=== PATIENT | male | born 1935 | race Caucasian/White ===

== ENCOUNTER 2016-12-12 22:01 | Emergency (ER) | payer OTHER ==
--- NOTE | 2016-12-12 23:03 | ED Physician Documentation ---
PD HPI Fall - Stated complaint Stated Complaint: GLF - Chief complaint Chief Complaint: Laceration - History obtained from History obtained from: Patient - History of Present Illness Mechanism of injury: Slipped Fall distance: Standing position Where injury occurred: Home Timing - onset: How many days ago (2) Injury(ies) location: Head (left ear), Left Uppper Extremity Pain level now: 8 Quality of pain: Pain Associated symptoms: No: LOC, AMS, Neck pain, Weakness Symptoms improve with: Rest Worsens with: Movement, Palpation Contributing factors: Anticoagulated Recently seen: Not recently seen - Additional information Additional information: fell two days ago at home, slipped while trying to adjust a rug in his bathroom. denies LOC, sustained injuries to left ear, left elbow, and left hand. His chief complaint is increasing swelling and pain of left hand and left elbow. Review of Systems Ears: reports: Ear pain Musculoskeletal: reports: Extremity pain, Joint pain Neurologic: reports: Head injury. denies: Generalized weakness, Focal weakness , Numbness, Confused, Altered mental status, Headache, LOC PD PAST MEDICAL HISTORY - Past Medical History Cardiovascular: Hypertension, High cholesterol Respiratory: None Neuro: CVA Endocrine/Autoimmune: Type 2 diabetes Psych: None Musculoskeletal: Osteoarthritis - Past Surgical History Cardiovascular: CABG - Present Medications Home Medications: Ambulatory Orders Medication Instructions Recorded Confirmed Aspirin [Lo-Dose Aspirin EC] 81 mg ORAL DAILY 11/05/14 06/25/15 Atorvastatin [Lipitor] 5 mg ORAL DAILY 11/05/14 06/25/15 Clopidogrel Bisulfate [Plavix] 75 mg ORAL DAILY 11/05/14 06/25/15 Ezetimibe [Zetia] 10 mg ORAL DAILY 11/05/14 06/25/15 Ipratropium/Albuterol [Duoneb] 1 neb INH Q4HR PRN 11/05/14 06/25/15 Metoprolol Tartrate 50 mg ORAL DAILY 11/05/14 06/25/15 Saxagliptin HCl [Onglyza] 5 mg ORAL DAILY 11/05/14 06/25/15 Sertraline [Zoloft] 100 mg ORAL DAILY 11/05/14 06/25/15 Valsartan [Diovan] 160 mg ORAL DAILY 11/05/14 06/25/15 Cephalexin [Keflex] 500 mg PO Q6HR #27 capsule 12/13/16 HYDROcod/ACETAM 5/325 [[place] 5/325] 1 - 2 ea PO Q6H PRN #15 tablet 12/13/16 - Allergies Allergies/Adverse Reactions: Allergies Allergy/AdvReac Type Severity Reaction Status Date / Time azithromycin [From Zithromax] Allergy Unknown Verified 12/12/16 22:09 - Social History Does the pt smoke?: No Smoking Status: Never smoker Does the pt drink ETOH?: No - Immunizations Immunizations are current?: Yes PD ED PE NORMAL - Vitals Vital signs reviewed: Yes - General General: Alert and oriented X 3, No acute distress, Well developed/nourished - HEENT HEENT: PERRL, EOMI - Neck Neck: No bony TTP - Extremities Extremities: No deformity - Neuro Neuro: Alert and oriented X 3, operations analyst 2-12 intact, No motor deficit, No sensory deficit PD ED PE EXPANDED - HEENT HEENT Visual: 1 - laceration (edges are loosely approximated; there is mild surrounding erythema.) 2 - swelling (echymosis, swelling) - Extremities Extremities: Tenderness, Swelling, Left elbow, Left hand (1st and second metacarpals) Results - Vitals Vitals: Vital Signs - 24 hr 12/12/16 12/13/16 22:09 01:44 Temperature 36.4 C L 36.9 C Heart Rate 74 76 Respiratory 18 15 Rate Blood Pressure 163/92 H 168/84 H O2 Saturation 96 95 Oxygen O2 Source Room air - Rads (name of study) left elbow xrays Radiology: Prelim report reviewed, See rad report left hand xrays Radiology: Prelim report reviewed, See rad report PD MEDICAL DECISION MAKING - ED course Complexity details: reviewed results, re-evaluated patient, considered differential, d/w patient Departure - Departure Disposition: 01 Home, Self Care Clinical Impression: Elbow fracture, left, Laceration of ear, Sprain of left hand Condition: Good Instructions: ED Fx Elbow, ED Laceration Old Not Sutr, ED Sling Follow-Up: Laz Stewart MD [Primary Care Provider] - (2-4 days for recheck of ear laceration) Rony Nails MD [Provider Admit Priv/Credential] - (2-5 days for evaluation of left elbow injury) Prescriptions: Cephalexin [Keflex] 500 mg PO Q6HR #27 capsule HYDROcod/ACETAM 5/325 [[place] 5/325] 1 - 2 ea PO Q6H PRN #15 tablet PRN Reason: Pain Discharge Date/Time: 12/13/16 01:45
--- NOTE | 2016-12-13 00:25 | XRAY Preliminary Report ---
Exam: XR Hand 3 View LT IMPRESSION: No fracture or dislocations. Osteoarthritis. [facility] SITE ID: [id number]
--- NOTE | 2016-12-13 00:28 | XRAY Report ---
EXAM: LEFT HAND RADIOGRAPHY EXAM DATE: 12/12/2016 11:33 PM. CLINICAL HISTORY: Fall. COMPARISON: None. TECHNIQUE: 3 views. FINDINGS: Bones: Normal. No fractures or bone lesions. Joints: Wrist chondrocalcinosis. There are advanced degenerative changes involving the first carpomet acarpal and DIP joints. Soft Tissues: Normal. No soft tissue swelling. IMPRESSION: No fracture or dislocations. Osteoarthritis. [facility] Referring Provider Line: [phone] SITE ID: [id number]
--- NOTE | 2016-12-13 00:30 | XRAY Preliminary Report ---
Exam: XR Elbow 3 View LT IMPRESSION: Joint effusion with subtle radial neck lucency suspicious for nondisplaced fracture. [facility] SITE ID: [id number]
--- NOTE | 2016-12-13 00:32 | XRAY Report ---
EXAM: LEFT ELBOW RADIOGRAPHY EXAM DATE: 12/12/2016 11:33 PM. CLINICAL HISTORY: Fall 2 days ago, hand and elbow pain COMPARISON: None. TECHNIQUE: 3 views. FINDINGS: Bones: Subtle radial neck lucency suspicious for a nondisplaced fracture. The distal humerus and prox imal ulna are intact. Joints: Small joint effusion. Soft Tissues: Normal. No soft tissue swelling. IMPRESSION: Joint effusion with subtle radial neck lucency suspicious for nondisplaced fracture. [facility] Referring Provider Line: [phone] SITE ID: [id number]
[2016-12-13] MEDS ORDERED: HYDROcod/ACETAM 5/325 MG TABLET PO STA (01:10)
[2016-12-13] MEDS ORDERED: CEPHALEXIN 250 MG CAPSULE PO STA (01:11)
[2016-12-13] MEDS ORDERED: CEPHALEXIN 250 MG CAPSULE PO ONE (01:15)
[2016-12-13] MEDS ORDERED: HYDROcod/ACETAM 5/325 MG TABLET ONE (01:15)
[2016-12-13 01:44] VITALS: BP 168/84
== END 2016-12-13 01:45 | disposition home or self-care (01) ==
LOC: ED 22:01
DX: S52.132A Displaced fracture of neck of left radius, initial encounter for closed fracture (principal); S63.92XA Sprain of unspecified part of left wrist and hand, initial encounter; S01.312A Laceration without foreign body of left ear, initial encounter; W01.0XXA Fall on same level from slipping, tripping and stumbling without subsequent striking against object, initial encounter; Y92.002 Bathroom of unspecified non-institutional (private) residence as the place of occurrence of the external cause; E11.9 Type 2 diabetes mellitus without complications; I10 Essential (primary) hypertension; E78.00 Pure hypercholesterolemia, unspecified; Z79.82 Long term (current) use of aspirin; Z86.73 Personal history of transient ischemic attack (TIA), and cerebral infarction without residual deficits
CPT/HCPCS: 29105; 73080; 73130; 99283; 99284; A9270

== ENCOUNTER 2018-04-02 10:31 | Outpatient (CLI) | payer OTHER ==
[2018-04-02 11:01] LABS: BASOPHILS # (AUTO) 0.1 10^3/uL (0.0-0.1); BASOPHILS % (AUTO) 0.6 %; EOSINOPHILS # (AUTO) 0.6 10^3/uL (0.0-0.7); HGB - HEMOGLOBIN 13.1 g/dL (14.0-18.0); LYMPHOCYTES # (AUTO) 1.5 10^3/uL (1.5-3.5); LYMPHOCYTES % (AUTO) 12.2 %; MEAN CORPUSCULAR HEMOGLOBIN 26.8 pg (27.0-31.0); MEAN CORPUSCULAR HGB CONC 33.1 g/dL (32.0-36.0); MONOCYTES # (AUTO) 1.1 10^3/uL (0.0-1.0); MONOCYTES % (AUTO) 9.1 %; NEUTROPHILS # (AUTO) 8.8 10^3/uL (1.5-6.6); NEUTROPHILS % (AUTO) 73.1 %; PLT - PLATELET COUNT 279 10^3/uL (130-450); RED BLOOD COUNT 4.88 10^6/uL (4.70-6.10); RED CELL DISTRIBUTION WIDTH 14.6 % (12.0-15.0)
[2018-04-02 11:14] LABS: HB2 TOTAL 14.7 g/dL; HEMOGLOBIN A1C 0.98 g/dL; HEMOGLOBIN A1C % 8.3 % (4.6-6.2)
[2018-04-02 11:35] LABS: ALBUMIN 4.3 g/dL (3.2-5.5); ALBUMIN/GLOBULIN RATIO 1.2 (1.0-2.2); ALKALINE PHOSPHATASE 87 IU/L (42-121); ALT ALANINE AMINOTRANSFERASE 16 IU/L (10-60); AST ASPARTATE AMINOTRANSFERASE 20 IU/L (10-42); BILIRUBIN,TOTAL 0.6 mg/dL (0.2-1.0); BUN - BLOOD UREA NITROGEN 39 mg/dL (6-20); CALCIUM 9.4 mg/dL (8.5-10.3); CARBON DIOXIDE - CO2 25 mmol/L (21-32); CHLORIDE 101 mmol/L (101-111); CHOL/HDL RATIO 2.5 (<5.0); CHOLESTEROL 104 mg/dL; GFR - MDRD 32 (>89); GLUCOSE 134 mg/dL (70-100); HDL CHOLESTEROL 42 mg/dL; LDL CHOLESTEROL,CALCULATED 40 mg/dL; SODIUM 137 mmol/L (135-145); TOTAL PROTEIN 7.9 g/dL (6.7-8.2); VLDL CHOLESTEROL 22 mg/dL
== END 2018-04-02 10:32 | disposition home or self-care (01) ==
LOC: LAB 10:31
PROVIDERS: ATTEND Family Medicine
DX: I10 Essential (primary) hypertension (principal); E78.5 Hyperlipidemia, unspecified; E11.51 Type 2 diabetes mellitus with diabetic peripheral angiopathy without gangrene; Z79.4 Long term (current) use of insulin; F41.9 Anxiety disorder, unspecified
CPT/HCPCS: 36415; 80053; 80061; 83036; 83721; 84443; 85025

== ENCOUNTER 2018-04-30 10:56 | Outpatient (CLI) | payer OTHER ==
[2018-04-30 11:30] LABS: BASOPHILS # (AUTO) 0.1 10^3/uL (0.0-0.1); BASOPHILS % (AUTO) 0.6 %; EOSINOPHILS # (AUTO) 0.6 10^3/uL (0.0-0.7); EOSINOPHILS % (AUTO) 5.5 %; HGB - HEMOGLOBIN 13.1 g/dL (14.0-18.0); LYMPHOCYTES # (AUTO) 1.5 10^3/uL (1.5-3.5); LYMPHOCYTES % (AUTO) 14.7 %; MEAN CORPUSCULAR HGB CONC 33.6 g/dL (32.0-36.0); MEAN CORPUSCULAR VOLUME 80.3 fL (80.0-94.0); MEAN PLATELET VOLUME 7.4 fL (7.4-11.4); MONOCYTES # (AUTO) 0.8 10^3/uL (0.0-1.0); MONOCYTES % (AUTO) 8.2 %; NEUTROPHILS # (AUTO) 7.2 10^3/uL (1.5-6.6); PLT - PLATELET COUNT 260 10^3/uL (130-450); RED BLOOD COUNT 4.87 10^6/uL (4.70-6.10); RED CELL DISTRIBUTION WIDTH 14.6 % (12.0-15.0); WHITE BLOOD COUNT 10.2 x10^3/uL (4.8-10.8)
== END 2018-04-30 10:57 | disposition home or self-care (01) ==
LOC: LAB 10:56
PROVIDERS: ATTEND Family Medicine
DX: D72.829 Elevated white blood cell count, unspecified (principal)
CPT/HCPCS: 36415; 85025

== ENCOUNTER 2018-07-05 14:58 | Emergency (ER) | payer OTHER ==
[2018-07-05] MEDS ORDERED: HYDROcod/ACETAM 5/325 MG TABLET PO STA (15:18)
--- NOTE | 2018-07-05 15:19 | ED Physician Documentation ---
PD HPI UPPER EXT INJURY - Stated complaint Stated Complaint: FALL/WRIST PX - Chief complaint Chief Complaint: Ext Problem - History obtained from History obtained from: Patient, Family - History of Present Illness Location: Right (Slip and fall early yesterday morning injuring the right wrist. No head or neck injury. Pain is moderate. He cannot move it.) Review of Systems Constitutional: reports: Reviewed and negative Throat: reports: Reviewed and negative Cardiac: reports: Reviewed and negative PD PAST MEDICAL HISTORY - Past Medical History Past Medical History: No Cardiovascular: Hypertension, High cholesterol Respiratory: None Neuro: None Endocrine/Autoimmune: Type 2 diabetes GI: GERD : Other HEENT: Chronic vision loss, Macular degeneration Psych: None Musculoskeletal: Osteoarthritis Derm: None - Past Surgical History Past Surgical History: Yes Cardiovascular: CABG - Present Medications Home Medications: Ambulatory Orders Medication Instructions Recorded Confirmed Aspirin [Lo-Dose Aspirin EC] 81 mg ORAL DAILY 11/05/14 05/25/17 Atorvastatin [Lipitor] 5 mg ORAL DAILY 11/05/14 05/25/17 Clopidogrel Bisulfate [Plavix] 75 mg ORAL DAILY 11/05/14 05/25/17 Ezetimibe [Zetia] 10 mg ORAL DAILY 11/05/14 05/25/17 Metoprolol Tartrate 50 mg ORAL BID 11/05/14 05/25/17 Sertraline [Zoloft] 100 mg ORAL DAILY 11/05/14 05/25/17 Valsartan [Diovan] 160 mg ORAL DAILY 11/05/14 05/25/17 HYDROcod/ACETAM 5/325 [[place] 5/325] 1 - 2 ea PO Q6H PRN #15 tablet 05/25/17 Insulin Glargine [Lantus Solostar] 18 units SQ DAILY 05/25/17 05/25/17 Omeprazole [PriLOSEC] 1 cap PO DAILY 05/25/17 05/25/17 Hydrocodone/Acetaminophen 1 - 2 each PO Q6H PRN #20 tablet 07/05/18 [Hydrocodon-Acetaminophen 5-325] - Allergies Allergies/Adverse Reactions: Allergies Allergy/AdvReac Type Severity Reaction Status Date / Time azithromycin [From Zithromax] Allergy Unknown Verified 07/05/18 15:09 - Social History Does the pt smoke?: No Smoking Status: Never smoker Does the pt drink ETOH?: No Does the pt have substance abuse?: No - Immunizations Immunizations are current?: Yes - POLST Patient has POLST: No PD ED PE NORMAL - Vitals Vital signs reviewed: Yes - General General: Alert and oriented X 3, No acute distress - Neck Neck: No bony TTP - Extremities Extremities: Other (Tender over the distal ulna not so much the distal radius. No snuffbox tenderness. He can't flex or extend the right very much but he has normal neurovascular status in the right hand.) - Neuro Neuro: Alert and oriented X 3, Normal speech Results - Vitals Vitals: Vital Signs - 24 hr 07/05/18 15:03 Temperature 36.6 C Heart Rate 56 L Respiratory 18 Rate Blood Pressure 124/61 O2 Saturation 98 Oxygen O2 Source Room air - Rads (name of study) 3v R wrist Radiology: EMP read contemporaneously (Slightly impacted distal radius fracture) Procedures - Splint (location) R wrist Splint applied by: Tech Type of splint: Fiberglass, Short arm, Volar cock up Other: Patient tolerated well, No complications, Neurovascular intact Departure - Departure Disposition: 01 Home, Self Care Clinical Impression: Fracture of right distal radius Qualifiers: Encounter type: initial encounter Fracture type: closed Fracture morphology: other extra-articular Qualified Code(s): S52.551A - Other extraarticular fracture of lower end of right radius, initial encounter for closed fracture Condition: Good Record reviewed to determine appropriate education?: Yes Instructions: ED Fx Forearm Radius Ulna No Redu Requ Follow-Up: [facility] [Provider Group] - Within 1 week Prescriptions: Hydrocodone/Acetaminophen [Hydrocodon-Acetaminophen 5-325] 1 - 2 each PO Q6H PRN #20 tablet PRN Reason: pain Comments: Keep the splint on and dry, do not remove it. Call the orthopedics office tomorrow for an appointment within the week. Keep it elevated. Return for new or worsening symptoms.
[2018-07-05 16:06] VITALS: BP 123/66
--- NOTE | 2018-07-05 16:11 | XRAY Report ---
Reason: Fall onto right hand, continues to have pain Procedure Date: 07/05/2018 Accession Number: [id number] / [id number] Procedure: XR - Wrist 3 View RT CPT Code: FULL RESULT: EXAM: RIGHT WRIST RADIOGRAPHY EXAM DATE: 07/05/2018 03:30 PM. CLINICAL HISTORY: Fall onto right hand, continues to have pain. COMPARISON: None. TECHNIQUE: 3 views. FINDINGS: Bones: Nondisplaced horizontal fracture at the junction of the diaphysis and metaphysis of the distal right radius. Joints: Some osteoarthritis of the first carpal metacarpal joint. Some chondrocalcinosis is present. Soft Tissues: Vascular calcifications. IMPRESSION: Nondisplaced horizontal fracture of the distal right radius. [facility]
== END 2018-07-05 16:07 | disposition home or self-care (01) ==
LOC: ED 14:58
DX: S52.551A Other extraarticular fracture of lower end of right radius, initial encounter for closed fracture (principal); W01.0XXA Fall on same level from slipping, tripping and stumbling without subsequent striking against object, initial encounter; E11.9 Type 2 diabetes mellitus without complications; Z79.4 Long term (current) use of insulin; I10 Essential (primary) hypertension; Z79.02 Long term (current) use of antithrombotics/antiplatelets; Z79.82 Long term (current) use of aspirin
CPT/HCPCS: 29125; 73110; 99283; A9270

== ENCOUNTER 2018-10-08 10:55 | Outpatient (CLI) | payer OTHER ==
--- NOTE | 2018-10-08 11:55 | XRAY Report ---
Reason: COUGH Procedure Date: 10/08/2018 Accession Number: [id number] / [id number] Procedure: WCP - Chest 1 View X-Ray CPT Code: 97751 FULL RESULT: EXAM: CHEST RADIOGRAPHY EXAM DATE: 10/08/2018 11:21 AM. CLINICAL HISTORY: Cough. COMPARISON: None. TECHNIQUE: 1 view. FINDINGS: Lungs/Pleura: There is gradient opacity in the left lower hemithorax consistent with small layering effusion. Adjacent plate-like subsegmental opacity consistent with atelectasis. No confluent airspace opacities. No extra-ventilatory air. Mediastinum: Within exam limitations, the cardiomediastinal contour is normal. Sequela of prior median sternotomy for CABG. Other: None. IMPRESSION: Small left effusion with associated basilar atelectasis. [facility]
== END 2018-10-08 10:56 | disposition home or self-care (01) ==
LOC: DI.WCP 10:55
PROVIDERS: ATTEND Family Medicine
DX: J90 Pleural effusion, not elsewhere classified (principal); J98.11 Atelectasis
CPT/HCPCS: 36415; 71045; 80053; 85025; 87275; 87276

== ENCOUNTER 2018-10-08 11:45 | Outpatient (CLI) | payer OTHER ==
[2018-10-08 18:50] LABS: BASOPHILS % (AUTO) 0.4 %; EOSINOPHILS # (AUTO) 0.3 10^3/uL (0.0-0.7); EOSINOPHILS % (AUTO) 2.4 %; HGB - HEMOGLOBIN 11.7 g/dL (14.0-18.0); LYMPHOCYTES # (AUTO) 1.3 10^3/uL (1.5-3.5); LYMPHOCYTES % (AUTO) 9.5 %; MEAN CORPUSCULAR HEMOGLOBIN 24.6 pg (27.0-31.0); MEAN CORPUSCULAR HGB CONC 31.4 g/dL (32.0-36.0); MEAN CORPUSCULAR VOLUME 78.4 fL (80.0-94.0); MEAN PLATELET VOLUME 7.8 fL (7.4-11.4); MONOCYTES # (AUTO) 1.1 10^3/uL (0.0-1.0); MONOCYTES % (AUTO) 7.8 %; NEUTROPHILS % (AUTO) 79.9 %; PLT - PLATELET COUNT 302 10^3/uL (130-450); RED BLOOD COUNT 4.76 10^6/uL (4.70-6.10); RED CELL DISTRIBUTION WIDTH 15.8 % (12.0-15.0); WHITE BLOOD COUNT 13.7 x10^3/uL (4.8-10.8)
[2018-10-08 19:16] LABS: ALBUMIN 3.9 g/dL (3.2-5.5); ALBUMIN/GLOBULIN RATIO 0.9 (1.0-2.2); BILIRUBIN,TOTAL 0.5 mg/dL (0.2-1.0); CALCIUM 9.2 mg/dL (8.5-10.3); CREATININE 1.8 mg/dL (0.6-1.2); TOTAL PROTEIN 8.2 g/dL (6.7-8.2)
== END 2018-10-08 11:46 | disposition home or self-care (01) ==
LOC: LAB.WCP 11:45
PROVIDERS: ATTEND Family Medicine
DX: R05 Cough (principal)
CPT/HCPCS: 36415; 80053; 85025; 87275; 87276

== ENCOUNTER 2018-12-30 14:45 | Outpatient (CLI) | payer OTHER ==
--- NOTE | 2018-12-30 15:05 | XRAY Report ---
Reason: SHOULDER PAIN,LEFT Procedure Date: 12/30/2018 Accession Number: [id number] / [id number] Procedure: WCP - Shoulder 2 View LT CPT Code: FULL RESULT: EXAM: LEFT SHOULDER RADIOGRAPHY EXAM DATE: 12/30/2018 02:57 PM. CLINICAL HISTORY: SHOULDER PAIN, LEFT. RECENT FALL. COMPARISON: None. TECHNIQUE: 3 views. FINDINGS: Bones: No fracture or bone lesion. Joints: Unremarkable glenohumeral joint. Moderate acromioclavicular joint osteoarthritis. Soft tissues: Questionable calcification of distal left rotator cuff tendon near its insertion. IMPRESSION: No acute abnormality. See above discussion of chronic findings. [facility]
== END 2018-12-30 14:46 | disposition home or self-care (01) ==
LOC: DI.WCP 14:45
PROVIDERS: ATTEND Family Medicine
DX: M19.012 Primary osteoarthritis, left shoulder (principal)

== ENCOUNTER 2019-02-05 16:13 | Outpatient (CLI) | payer OTHER ==
--- NOTE | 2019-02-07 17:27 | MRI Report ---
Reason: ROTATOR CUFF TEAR,LEFT,SHOULDER PAIN,LEFT Procedure Date: 02/05/2019 Accession Number: [id number] / [id number] Procedure: MRI - Shoulder LT W/O CPT Code: FULL RESULT: EXAM: LEFT SHOULDER MRI WITHOUT CONTRAST. EXAM DATE: 02/05/2019 05:41 PM. CLINICAL HISTORY: Rotator cuff tear, left, shoulder pain, left. COMPARISON: SHOULDER 2 VIEW LT 12/30/2018 2:39 PM. TECHNIQUE: Multiplanar, multisequence T1-weighted and fluid-sensitive sequences of the shoulder without contrast. Other: None. FINDINGS: Acromioclavicular Region: The acromion is type I. Mild degenerative joint disease with small osteophytes. Small joint effusion. The coracoacromial and coracoclavicular ligaments are intact. Trace subacromial fluid. Glenohumeral Region: No subluxation. Small joint effusion. Moderate diffuse cartilage thinning. The glenohumeral ligaments and joint capsule are unremarkable. Bone Marrow: No fracture, marrow edema or bone lesions. Labrum: The labrum is unremarkable on this nonarthrographic study. Musculature/Rotator Cuff: 1.3 cm transverse diameter tear distal supraspinatus. Majority of this is 50-75% thickness, but there is likely a small non-retracted full-thickness component. Mild tendinosis of T2 hyperintensity of the distal infraspinatus. Subscapularis and teres minor appear normal. Grade 1 supraspinatus and grade 2 infraspinatus atrophy. Biceps Tendon: The long head of the biceps tendon and biceps nikki are intact. Other: The subcutaneous tissues are unremarkable. IMPRESSION: 1. Mild to moderate glenohumeral degenerative joint disease and mild acromioclavicular degenerative joint disease. 2. 1.3 cm transverse diameter distal supraspinatus tear, majority partial thickness with a small non-retracted full-thickness component. 3. Tendinosis of the distal infraspinatus with grade 2 atrophy. No full-thickness infraspinatus tear or retraction. [facility]
== END 2019-02-05 16:14 | disposition home or self-care (01) ==
LOC: DI 16:13
PROVIDERS: ATTEND Family Medicine
DX: M75.102 Unspecified rotator cuff tear or rupture of left shoulder, not specified as traumatic (principal); M19.012 Primary osteoarthritis, left shoulder; M75.92 Shoulder lesion, unspecified, left shoulder

== ENCOUNTER 2020-07-04 16:15 | Outpatient (CLI) | payer OTHER ==
[2020-07-04 18:38] LABS: BASOPHILS % (AUTO) 0.3 %; EOSINOPHILS # (AUTO) 0.2 10^3/uL (0.0-0.7); EOSINOPHILS % (AUTO) 1.7 %; HGB - HEMOGLOBIN 11.5 g/dL (14.0-18.0); LYMPHOCYTES # (AUTO) 1.4 10^3/uL (1.5-3.5); LYMPHOCYTES % (AUTO) 14.3 %; MEAN CORPUSCULAR HEMOGLOBIN 24.3 pg (27.0-31.0); MEAN CORPUSCULAR HGB CONC 29.3 g/dL (32.0-36.0); MEAN CORPUSCULAR VOLUME 82.9 fL (80.0-94.0); MEAN PLATELET VOLUME 9.6 fL (7.4-11.4); MONOCYTES # (AUTO) 0.8 10^3/uL (0.0-1.0); NEUTROPHILS # (AUTO) 7.3 10^3/uL (1.5-6.6); NEUTROPHILS % (AUTO) 75.2 %; PLT - PLATELET COUNT 274 10^3/uL (130-450); RED BLOOD COUNT 4.74 10^6/uL (4.70-6.10); RED CELL DISTRIBUTION WIDTH 15.5 % (12.0-15.0); WHITE BLOOD COUNT 9.8 x10^3/uL (4.8-10.8)
[2020-07-04 18:52] LABS: ALBUMIN/GLOBULIN RATIO 0.9 (1.0-2.2); ALKALINE PHOSPHATASE 88 IU/L (42-121); ALT ALANINE AMINOTRANSFERASE 12 IU/L (10-60); AST ASPARTATE AMINOTRANSFERASE 14 IU/L (10-42); BILIRUBIN,TOTAL 0.5 mg/dL (0.2-1.0); BUN - BLOOD UREA NITROGEN 38 mg/dL (6-20); CALCIUM 9.4 mg/dL (8.5-10.3); CARBON DIOXIDE - CO2 25 mmol/L (21-32); CHLORIDE 102 mmol/L (101-111); CHOL/HDL RATIO 2.6 (<5.0); CHOLESTEROL 124 mg/dL; CREATININE 1.9 mg/dL (0.6-1.2); GLUCOSE 135 mg/dL (70-100); HDL CHOLESTEROL 47 mg/dL; LDL CHOLESTEROL,CALCULATED 53 mg/dL; LDL/HDL RATIO 1.1 (<3.6); SODIUM 139 mmol/L (135-145); TOTAL PROTEIN 8.3 g/dL (6.7-8.2); VLDL CHOLESTEROL 24 mg/dL
[2020-07-04 19:00] LABS: FREE T3 2.74 pg/mL (2.5-3.9); THYROID STIMULATING HORMONE 1.87 uIU/mL (0.34-5.60)
[2020-07-04 19:02] LABS: CREATININE,URINE 145.4 mg/dL; FREE T4 (FREE THYROXINE) 0.74 ng/dL (0.58-1.64); MICROALBUM/CREATININE RATIO,UR 118.3 ug/mg (<30.0); MICROALBUMIN,URINE 17.2 mg/dL (0-300.0)
[2020-07-04 19:05] LABS: HEMOGLOBIN A1c% 7.5 % (4.27-6.07)
== END 2020-07-04 23:59 | disposition home or self-care (01) ==
LOC: LAB.WCP 16:15
PROVIDERS: ATTEND Family Medicine
DX: I12.9 Hypertensive chronic kidney disease with stage 1 through stage 4 chronic kidney disease, or unspecified chronic kidney disease (principal); E11.22 Type 2 diabetes mellitus with diabetic chronic kidney disease; N18.30 Chronic kidney disease, stage 3 unspecified; E11.51 Type 2 diabetes mellitus with diabetic peripheral angiopathy without gangrene; I25.810 Atherosclerosis of coronary artery bypass graft(s) without angina pectoris; M62.81 Muscle weakness (generalized)
CPT/HCPCS: 36415; 80053; 80061; 82043; 82570; 83036; 83721; 84439; 84443; 84481; 85025

== ENCOUNTER 2020-07-24 17:08 | Outpatient (CLI) | payer OTHER | END 2020-07-24 17:09 | disposition critical access hospital (66) | LOC: EMS 17:08 | PROVIDERS: ATTEND Surgery | DX: R55 Syncope and collapse (principal) | CPT/HCPCS: A0425; A0427 ==

== ENCOUNTER 2020-07-24 17:18 | Emergency (ER) | payer OTHER ==
[2020-07-24] MEDS ORDERED: TETANUS/DIPHTHERIA/PERTUSSIS 0.5 ML SYRINGE IM ONE (17:23)
--- NOTE | 2020-07-24 17:24 | ED Physician Documentation ---
PD HPI HEAD INJURY - Stated complaint Stated Complaint: GLF - History obtained from History obtained from: Patient, EMS (85-year-old gentleman who states to me that he has no medical problems but his coronary bypass sternotomy scar would suggest otherwise. He had a slip and fall injuring his left shoulder. He does not think he hit his head, but when he hit the ground he syncopized. He is on Plavix.) Review of Systems Ten Systems: 10 systems reviewed and negative Cardiac: denies: Chest pain / pressure, Palpitations Respiratory: denies: Dyspnea, Cough GI: reports: Reviewed and negative PD PAST MEDICAL HISTORY - Past Medical History Cardiovascular: Hypertension, High cholesterol Respiratory: None Neuro: None Endocrine/Autoimmune: Type 2 diabetes GI: GERD : Other HEENT: Chronic vision loss, Macular degeneration Psych: None Musculoskeletal: Osteoarthritis Derm: None - Past Surgical History Past Surgical History: Yes Cardiovascular: CABG - Present Medications Home Medications: Ambulatory Orders Medication Instructions Recorded Confirmed Aspirin [Lo-Dose Aspirin EC] 81 mg ORAL DAILY 11/05/14 05/25/17 Atorvastatin [Lipitor] 5 mg ORAL DAILY 11/05/14 05/25/17 Clopidogrel Bisulfate [Plavix] 75 mg ORAL DAILY 11/05/14 05/25/17 Ezetimibe [Zetia] 10 mg ORAL DAILY 11/05/14 05/25/17 Metoprolol Tartrate 50 mg ORAL BID 11/05/14 05/25/17 Sertraline [Zoloft] 100 mg ORAL DAILY 11/05/14 05/25/17 Valsartan [Diovan] 160 mg ORAL DAILY 11/05/14 05/25/17 HYDROcod/ACETAM 5/325 [[place] 5/325] 1 - 2 ea PO Q6H PRN #15 tablet 05/25/17 Insulin Glargine [Lantus Solostar] 18 units SQ DAILY 05/25/17 05/25/17 Omeprazole [PriLOSEC] 1 cap PO DAILY 05/25/17 05/25/17 Hydrocodone/Acetaminophen 1 - 2 each PO Q6H PRN #20 tablet 07/05/18 [Hydrocodon-Acetaminophen 5-325] traMADol [Ultram] 50 mg PO Q4-6H PRN #15 tablet 07/24/20 - Allergies Allergies/Adverse Reactions: Allergies Allergy/AdvReac Type Severity Reaction Status Date / Time azithromycin [From Zithromax] Allergy Unknown Verified 07/24/20 17:28 - Social History Does the pt smoke?: No Smoking Status: Never smoker Does the pt drink ETOH?: No Does the pt have substance abuse?: No - Immunizations Immunizations are current?: Yes - POLST Patient has POLST: No PD ED PE NORMAL - Vitals Vital signs reviewed: Yes - General General: Alert and oriented X 3, No acute distress - HEENT HEENT: PERRL, EOMI - Neck Neck: Supple, no meningeal sign, No bony TTP - Cardiac Cardiac: RRR, No murmur - Respiratory Respiratory: No respiratory distress, Clear bilaterally - Abdomen Abdomen: Non tender - Back Back: No CVA TTP, No spinal TTP - Derm Derm: Normal color, Warm and dry - Extremities Extremities: Other (Tender over the top of the glenohumeral joint with decent range of motion. He has a skin tear over the elbow which is nontender.) - Neuro Neuro: Alert and oriented X 3, security systems installer 2-12 intact, No motor deficit, No sensory deficit, Normal speech Results - Vitals Vitals: Vital Signs - 24 hr 07/24/20 07/24/20 07/24/20 17:21 17:57 18:27 Temperature 36.6 C Heart Rate 63 61 60 Heart Rate [ Sitting] Heart Rate [ Standing] Heart Rate [ Supine] Respiratory 20 10 L 18 Rate Blood Pressure 172/83 H 157/80 H 190/78 H Blood Pressure [Sitting] Blood Pressure [Standing] Blood Pressure [Supine] O2 Saturation 97 99 98 07/24/20 07/24/20 18:43 19:00 Temperature Heart Rate 64 Heart Rate [ 70 Sitting] Heart Rate [ 71 Standing] Heart Rate [ 62 Supine] Respiratory 18 Rate Blood Pressure 191/73 H Blood Pressure 168/146 H [Sitting] Blood Pressure 182/120 H [Standing] Blood Pressure 165/69 H [Supine] O2 Saturation 99 Oxygen O2 Source Room air - EKG (time done) 1722 Rate: Rate (enter#) (61) Rhythm: NSR [place]: Normal Intervals: Prolonged ND, RBBB, Other (LAFB) Ischemia: Q waves (inf/ant) Compare to prior EKG: Changed from prior EKG (last EKG was during STEMI) Computer interpretation: Agree with computer - Labs Labs: Laboratory Tests 07/24/20 07/24/20 07/24/20 17:24 17:24 17:24 WBC 10.0 RBC 5.07 Hgb 12.5 L Hct 41.2 L MCV 81.3 MCH 24.7 L MCHC 30.3 L RDW 15.4 H Plt Count 289 MPV 9.0 Neut # (Auto) 7.2 H Lymph # (Auto) 1.8 [place] # (Auto) 0.7 Eos # (Auto) 0.2 Baso # (Auto) 0.1 Absolute Nucleated RBC 0.00 Nucleated RBC % 0.0 PT 13.7 H INR 1.2 Sodium 139 Potassium 4.3 Chloride 99 L Carbon Dioxide 26 Anion Gap 14.0 H BUN 38 H Creatinine 1.8 H Estimated GFR (MDRD) 36 L Glucose 128 H Calcium 9.0 Total Bilirubin 0.6 AST 18 ALT 12 Alkaline Phosphatase 97 Troponin I High Sens Total Protein 8.4 H Albumin 4.1 Globulin 4.3 H Albumin/Globulin Ratio 1.0 Lipase 28 07/24/20 17:24 WBC RBC Hgb Hct MCV MCH MCHC RDW Plt Count MPV Neut # (Auto) Lymph # (Auto) [place] # (Auto) Eos # (Auto) Baso # (Auto) Absolute Nucleated RBC Nucleated RBC % PT INR Sodium Potassium Chloride Carbon Dioxide Anion Gap BUN Creatinine Estimated GFR (MDRD) Glucose Calcium Total Bilirubin AST ALT Alkaline Phosphatase Troponin I High Sens 11.5 Total Protein Albumin Globulin Albumin/Globulin Ratio Lipase - Rads (name of study) CT head and Cspine Radiology: EMP read contemporaneously (Chronic changes only without evidence of acute trauma.) X-ray of the left shoulder and single view x-ray of the chest Radiology: EMP read contemporaneously (No fractures, potentially mild pulmonary edema and a very small left pleural effusion.) PD MEDICAL DECISION MAKING - ED course ED course: 85-year-old gentleman had a fall, not syncopal but then blacked out when he hit the ground. He does not think he hit his head but obviously that is a concern given the mechanism and loss of consciousness. He is on Plavix 2. CT the head and neck were done without acute pertinent positive findings. Also a chest x- ray and a shoulder x-ray without traumatic findings. His orthostatics were negative. Renal function is at his baseline. Otherwise no acute pertinent positive findings on the labs. He did well up on his feet here without specific complaints and requested discharge. Departure - Departure Disposition: 01 Home, Self Care Clinical Impression: Contusion of left shoulder Qualifiers: Encounter type: initial encounter Qualified Code(s): S40.012A - Contusion of left shoulder, initial encounter Fall Qualifiers: Encounter type: initial encounter Qualified Code(s): W19.XXXA - Unspecified fall, initial encounter Head injury Qualifiers: Encounter type: initial encounter Qualified Code(s): S09.90XA - Unspecified injury of head, initial encounter Condition: Stable Record reviewed to determine appropriate education?: Yes Instructions: ED Contusion Soft Tissue, ED Head Injury Closed Prescriptions: traMADol [Ultram] 50 mg PO Q4-6H PRN #15 tablet PRN Reason: Pain Comments: Tylenol as needed for the pain. Return for new or worsening symptoms. Follow- up with your primary care physician, next available appointments.
[2020-07-24 17:36] LABS: BASOPHILS # (AUTO) 0.1 10^3/uL (0.0-0.1); BASOPHILS % (AUTO) 0.6 %; EOSINOPHILS # (AUTO) 0.2 10^3/uL (0.0-0.7); EOSINOPHILS % (AUTO) 2.3 %; HCT - HEMATOCRIT 41.2 % (42.0-52.0); HGB - HEMOGLOBIN 12.5 g/dL (14.0-18.0); LYMPHOCYTES # (AUTO) 1.8 10^3/uL (1.5-3.5); LYMPHOCYTES % (AUTO) 17.5 %; MEAN CORPUSCULAR HEMOGLOBIN 24.7 pg (27.0-31.0); MEAN CORPUSCULAR HGB CONC 30.3 g/dL (32.0-36.0); MEAN CORPUSCULAR VOLUME 81.3 fL (80.0-94.0); MONOCYTES # (AUTO) 0.7 10^3/uL (0.0-1.0); MONOCYTES % (AUTO) 6.7 %; NEUTROPHILS # (AUTO) 7.2 10^3/uL (1.5-6.6); NEUTROPHILS % (AUTO) 72.4 %; PLT - PLATELET COUNT 289 10^3/uL (130-450); RED BLOOD COUNT 5.07 10^6/uL (4.70-6.10); RED CELL DISTRIBUTION WIDTH 15.4 % (12.0-15.0)
[2020-07-24 17:42] LABS: INR 1.2 (0.8-1.2); PT - PROTHROMBIN TIME 13.7 secs (9.9-12.6)
[2020-07-24 17:50] LABS: ALBUMIN 4.1 g/dL (3.2-5.5); BILIRUBIN,TOTAL 0.6 mg/dL (0.2-1.0); CREATININE 1.8 mg/dL (0.6-1.2); POTASSIUM 4.3 mmol/L (3.5-5.0); TOTAL PROTEIN 8.4 g/dL (6.7-8.2)
--- NOTE | 2020-07-24 17:59 | CT Report ---
PROCEDURE: HEAD WO INDICATIONS: poss head inj TECHNIQUE: Noncontrast 4.5 mm thick angled axial sections acquired from the foramen magnum to the vertex. For r adiation dose reduction, the following was used: automated exposure control, adjustment of mA and/or kV according to patient size. COMPARISON: Prior head CT, 05/27/2017. Correlation is also made with the accompanying cervical spine CT, 07/24/2020. FINDINGS: Image quality: Excellent. CSF spaces: Basal cisterns are patent. An arachnoid cyst is seen involving the inferior aspect of t he posterior fossa, which is best seen on the sagittal images. Ventricles are prominent in size and s hape, yet stable compared to 2017 Brain: A chronic, stable right frontal lobe infarction can be seen. There is also a chronic, stable right occipital lobe infarction seen. A smaller, stable infarction can be seen involving the left inf eromedial occipital lobe. Brain parenchymal volume loss is seen. Chronic small vessel ischemic change s are seen. No midline shift. No intracranial masses or hemorrhage. Whitley-white matter interface is normal. Skull and face: Calvarium and visualized facial bones are intact, without suspicious lesions. Sinuses: Visualized sinuses and mastoids are clear. IMPRESSION: No intracranial hemorrhage is seen. No significant intracranial abnormality is seen. Stable infarctions are seen. Posterior fossa arachnoid cyst incidentally noted. Age-appropriate brain parenchymal volume loss and chronic small vessel ischemic change can be seen. Reviewed by: Renard Diane MD on 07/24/2020 4:57 PM AKST Approved by: Renard Diane MD on 07/24/2020 4:57 PM [place] Station ID: [id number]
--- NOTE | 2020-07-24 18:01 | CT Report ---
PROCEDURE: CERVICAL SPINE WO INDICATIONS: poss head inj TECHNIQUE: Noncontrast 3 mm thick sections acquired from the skull base to the T4 level. Sagittal and coronal r eformats were then constructed. For radiation dose reduction, the following was used: automated exp osure control, adjustment of mA and/or kV according to patient size. COMPARISON: 05/27/2017. Correlation is also made with the accompanying head CT, 07/24/2020. FINDINGS: Image quality: Excellent. Bones: No fractures or dislocations. Visualized superior ribs are intact. Sternotomy wires are partially seen. Mild dextroconvex cervicothoracic scoliotic curvature is seen. Degenerative changes are seen, including moderate disc space narrowing at C4-C5, with moderate to sev ere disc space narrowing at C5-C6, C6-C7, and C7-T1. Posteriorly directed endplate osteophytes are se en within the lower cervical spine. Mild bridging anterior osteophytes are seen within the lower cerv ical spine. Focal degenerative change can also be seen involving the C1-C2 interface anteriorly. Soft tissues: Prevertebral soft tissues are normal in thickness. No paravertebral hematomas. No ap ical pneumothoraces. IMPRESSION: No acute fractures are seen. Relatively prominent cervical spine degenerative changes are seen, which are most prominent inferiorl y. Reviewed by: Renard Diane MD on 07/24/2020 4:59 PM [place] Approved by: Renard Diane MD on 07/24/2020 4:59 PM [place] Station ID: [id number]
--- NOTE | 2020-07-24 18:14 | XRAY Report ---
PROCEDURE: Chest 1 View X-Ray INDICATIONS: syncope TECHNIQUE: One view of the chest was acquired. COMPARISON: 10/08/2018 FINDINGS: Surgical changes and devices: Postsurgical changes are redemonstrated in the mediastinum. Lungs and pleura: There is persistent blunting of the left costophrenic angle consistent with a smal l left pleural effusion versus pleural thickening. Mild pulmonary vascular prominence is demonstrated suggestive of mild edema. No evidence of pneumothorax. Mediastinum: Mediastinal contours appear unchanged. Heart size is normal. Bones and chest wall: No suspicious bony lesions. Overlying soft tissues appear unremarkable. IMPRESSION: 1. Mild pulmonary edema. 2. Small left pleural effusion versus pleural thickening. Reviewed by: Rinku Forbes MD on 07/24/2020 6:12 PM PST Approved by: Rinku Forbes MD on 07/24/2020 6:12 PM PST Station ID: [id number]
--- NOTE | 2020-07-24 18:15 | XRAY Report ---
PROCEDURE: Shoulder 3 View LT INDICATIONS: shoulder injury TECHNIQUE: 3 views of the shoulder were acquired. COMPARISON: Same day CXR. FINDINGS: Bones: No fractures or dislocations. Moderate degenerative change. No suspicious bony lesions. Visu alized ribs appear intact. Soft tissues: No suspicious soft tissue calcifications. IMPRESSION: No fracture or dislocation. Reviewed by: David Gupta MD on 07/24/2020 5:13 PM [facility] Approved by: David Gupta MD on 07/24/2020 5:13 PM [facility] Station ID: [id number]
[2020-07-24 19:12] VITALS: BP 191/73
[2020-07-24] MEDS ORDERED: traMADol 50 MG TABLET PO STA (19:25)
== END 2020-07-24 19:29 | disposition home or self-care (01) ==
LOC: EDUNIT# → ED 17:18
DX: S40.012A Contusion of left shoulder, initial encounter (principal); S09.90XA Unspecified injury of head, initial encounter; W19.XXXA Unspecified fall, initial encounter; I10 Essential (primary) hypertension; Z95.5 Presence of coronary angioplasty implant and graft; E11.9 Type 2 diabetes mellitus without complications; Z79.01 Long term (current) use of anticoagulants; Z79.4 Long term (current) use of insulin; I45.2 Bifascicular block; Z23 Encounter for immunization
CPT/HCPCS: 36415; 70450; 71045; 72125; 73030; 80053; 83690; 84484; 85025; 85610; 90471; 90715; 93005; 99283; 99284; A9270

== ENCOUNTER 2021-05-04 17:18 | Outpatient (CLI) | payer OTHER | END 2021-05-04 17:19 | disposition EMS.NT | LOC: EMS 17:18 | DX: Z03.89 Encounter for observation for other suspected diseases and conditions ruled out (principal) ==

== ENCOUNTER 2021-05-04 17:52 | Emergency (ER) | payer OTHER ==
--- NOTE | 2021-05-04 18:43 | ED Physician Documentation ---
History of Present Illness - Stated complaint Stated Complaint: LT HIP PX - Chief complaint Chief Complaint: Back Pain - History obtained from History obtained from: Patient, Family - History of Present Illness Timing: Today Pain level max: 5 Pain level now: 3 - Additonal information Additional information: 86-year-old male with a fall a few weeks ago. Complains of increasing back and left hip pain today. Brought in by daughter. Worse with walking and standing. Better with rest. Had difficulty standing earlier today. No focal neurological deficits. She also states over the past 6 months has had increasing cognitive difficulties and increasing confusion. They are not able to see his doctor for another 3 months. No fevers. No chills. No headache. No head injury. Review of Systems Constitutional: denies: Fever, Chills Respiratory: denies: Cough GI: denies: Nausea, Vomiting, Diarrhea Skin: denies: Rash Musculoskeletal: denies: Neck pain, Extremity pain, Extremity swelling Neurologic: reports: Confused. denies: Headache, Head injury PD PAST MEDICAL HISTORY - Past Medical History Past Medical History: Yes Cardiovascular: Hypertension, High cholesterol Respiratory: None Neuro: None Endocrine/Autoimmune: Type 2 diabetes GI: GERD : Other HEENT: Chronic vision loss, Macular degeneration Psych: None Musculoskeletal: Osteoarthritis Derm: None - Past Surgical History Past Surgical History: Yes Cardiovascular: CABG - Present Medications Home Medications: Ambulatory Orders Medication Instructions Recorded Confirmed Aspirin [Lo-Dose Aspirin EC] 81 mg ORAL DAILY 11/05/14 05/25/17 Atorvastatin [Lipitor] 5 mg ORAL DAILY 11/05/14 05/25/17 Clopidogrel Bisulfate [Plavix] 75 mg ORAL DAILY 11/05/14 05/25/17 Ezetimibe [Zetia] 10 mg ORAL DAILY 11/05/14 05/25/17 Metoprolol Tartrate 50 mg ORAL BID 11/05/14 05/25/17 Sertraline [Zoloft] 100 mg ORAL DAILY 11/05/14 05/25/17 Valsartan [Diovan] 160 mg ORAL DAILY 11/05/14 05/25/17 HYDROcod/ACETAM 5/325 [[place] 5/325] 1 - 2 ea PO Q6H PRN #15 tablet 05/25/17 Insulin Glargine [Lantus Solostar] 18 units SQ DAILY 05/25/17 05/25/17 Omeprazole [PriLOSEC] 1 cap PO DAILY 05/25/17 05/25/17 Hydrocodone/Acetaminophen 1 - 2 each PO Q6H PRN #20 tablet 07/05/18 [Hydrocodon-Acetaminophen 5-325] traMADol [Ultram] 50 mg PO Q4-6H PRN #15 tablet 07/24/20 cephALEXin [Keflex] 500 mg PO Q6H #28 cap 05/04/21 - Allergies Allergies/Adverse Reactions: Allergies Allergy/AdvReac Type Severity Reaction Status Date / Time azithromycin [From Zithromax] Allergy Unknown Verified 05/04/21 17:59 - Social History Does the pt smoke?: No Smoking Status: Never smoker Does the pt drink ETOH?: No Does the pt have substance abuse?: No - Immunizations Immunizations are current?: Yes - POLST Patient has POLST: No PD ED PE NORMAL - Vitals Vital signs reviewed: Yes - General General: No acute distress, Well developed/nourished, Other (alert, oriented to person and place) - HEENT HEENT: Atraumatic, PERRL, Moist mucous membranes, Pharynx benign - Neck Neck: Supple, no meningeal sign, No bony TTP - Cardiac Cardiac: RRR, Strong equal pulses - Respiratory Respiratory: No respiratory distress, Clear bilaterally - Abdomen Abdomen: Soft, Non tender, Non distended - Back Back: No spinal TTP (no tenderness, no ecchymosis. 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, No motor deficit, No sensory deficit, Normal speech Eye Opening: Spontaneous Motor: Obeys Commands Verbal: Confused GCS Score: 14 Results - Vitals Vitals: Vital Signs - 24 hr 05/04/21 05/04/21 17:59 21:29 Temperature 36.6 C 36.6 C Heart Rate 48 L 54 L Respiratory 18 16 Rate Blood Pressure 166/57 H 152/57 H O2 Saturation 97 98 Oxygen O2 Source Room air - EKG (time done) 2032 Rate: Rate (enter#) (47) Rhythm: NSR [place]: Normal Intervals: Prolonged MA, RBBB - Labs Labs: Laboratory Tests 05/04/21 05/04/21 05/04/21 20:15 20:15 20:57 WBC 10.2 RBC 4.75 Hgb 12.5 L Hct 39.8 L MCV 83.8 MCH 26.3 L MCHC 31.4 L RDW 14.7 Plt Count 232 MPV 8.6 Neut # (Auto) 7.3 H Lymph # (Auto) 1.7 [place] # (Auto) 0.8 Eos # (Auto) 0.4 Baso # (Auto) 0.0 Absolute Nucleated RBC 0.00 Nucleated RBC % 0.0 Sodium 140 Potassium 4.9 Chloride 101 Carbon Dioxide 27 Anion Gap 12.0 BUN 38 H Creatinine 2.0 H Estimated GFR (MDRD) 32 L Glucose 104 H Calcium 9.3 Total Bilirubin 0.7 AST 17 ALT 13 Alkaline Phosphatase 92 Total Protein 8.4 H Albumin 4.2 Globulin 4.2 Albumin/Globulin Ratio 1.0 Lipase 36 Urine Color YELLOW Urine Clarity HAZY Urine pH 5.5 Ur Specific [place] 1.020 Urine Protein TRACE Urine Glucose (UA) NEGATIVE Urine Ketones NEGATIVE Urine Occult Blood MODERATE H Urine Nitrite POSITIVE H Urine Bilirubin NEGATIVE Urine Urobilinogen 0.2 (NORMAL) Ur Leukocyte Esterase TRACE H Urine RBC 6-10 H Urine WBC 4-5 Ur Squamous Epith Cells RARE Squamous Urine Bacteria Moderate H Ur Microscopic Review INDICATED Urine Culture Comments INDICATED - Rads (name of study) Lumbar spine x-ray Radiology: Final report received, EMP read contemporaneously, See rad report (1. No fracture. 2. [id number] degenerative disc and facet disease in lumbar spine. ) Left hip x-ray Radiology: Final report received, EMP read contemporaneously, See rad report (1. No fracture or dislocation. 2. Mild degenerative joint disease in hips bilaterally. 3. Moderate degenerative disc and facet disease in the lower lumbar spine. ) Head CT Radiology: Final report received, EMP read contemporaneously, See rad report (1. No acute intracranial abnormalities. 2. Old right frontal infarct. 3. Cerebral volume loss and periventricular white matter chronic small vessel treatment changes. ) PD MEDICAL DECISION MAKING - ED course Complexity details: reviewed results, re-evaluated patient, considered differential, d/w patient, d/w family ED course: Patient is an 86-year-old male who presents to the emergency department after a fall 5 days ago, complains of left hip and low back pain. Did not seem to be in any pain here. Able to stand and ambulate without any difficulty or limping. No acute findings on x-rays. The daughter is also concerned about his increasing confusion over the past several months and increasing confusion recently. Unable to see his PCP for several more months. Head CT shows volume loss, but no acute abnormality. He does have a UTI and we will place him on antibiotics for this. Patient is well-appearing, nontoxic. Afebrile. No evidence of sepsis. Likely dementia. Patient and family counseled regarding signs and symptoms for which I believe and urgent re-evaluation would be necessary. Patient with good understanding of and agreement to plan and is comfortable going home at this time This document was made in part using voice recognition software. While efforts are made to proofread this document, sound alike and grammatical errors may occur. Departure - Departure Disposition: 01 Home, Self Care Clinical Impression: Buttock pain UTI (urinary tract infection) Qualifiers: Urinary tract infection type: acute cystitis Hematuria presence: without ioana turia Qualified Code(s): N30.00 - Acute cystitis without hematuria Fall Qualifiers: Encounter type: initial encounter Qualified Code(s): W19.XXXA - Unspecified fall, initial encounter Dementia Qualifiers: Dementia type: unspecified type Dementia behavioral disturbance: without behavioral disturbance Qualified Code(s): F03.90 - Unspecified dementia without behavioral disturbance Condition: Good Instructions: ED Dementia Caregiver Support, ED UTI Cystitis Male Follow-Up: Kalin López MD [Primary Care Provider] - Within 1 week Prescriptions: cephALEXin [Keflex] 500 mg PO Q6H #28 cap Comments: Your antibiotic was sent to [facility] in [place]. Please take all antibiotics until gone. X-rays did not show any acute abnormalities today. Follow-up with your doctor for further care. Your symptoms are concerning for dementia today. Your head CT results are below. HEAD CT 1. No acute intracranial abnormalities. 2. Old right frontal infarct. 3. Cerebral volume loss and periventricular white matter chronic small vessel treatment changes. Discharge Date/Time: 05/04/21 21:36
--- NOTE | 2021-05-04 18:59 | XRAY Report ---
PROCEDURE: Hip w/Pelvis 2-3V LT INDICATIONS: fall, pain TECHNIQUE: AP pelvis with lateral view(s) of the bilateral hip(s). COMPARISON: None. FINDINGS: Bones: No fractures or dislocations. Pelvic ring appears intact. There is a sclerotic lesion in the proximal femoral shaft, probably an enchondroma. Mild degenerative joint disease in hips bilaterally . Moderate degenerative disc and facet disease in the lower lumbar spine. Soft tissues: The visualized bowel gas pattern is normal. No suspicious soft tissue calcifications. IMPRESSION: 1. No fracture or dislocation. 2. Mild degenerative joint disease in hips bilaterally. 3. Moderate degenerative disc and facet disease in the lower lumbar spine. Reviewed by: Loretta Collado MD on 05/04/2021 6:58 PM PDT Approved by: Loretta Collado MD on 05/04/2021 6:58 PM PDT Station ID: [id number]
--- NOTE | 2021-05-04 19:02 | XRAY Report ---
PROCEDURE: Lumbar Spine 2 View INDICATIONS: fall, pain TECHNIQUE: 3 views of the lumbar spine were acquired. COMPARISON: None. FINDINGS: Bones: 5 [id number]-exd-quglygz vertebrae are present. There is grade 1 anterolisthesis of L5 on S1. No v ertebral body compression fractures. No suspicious bony lesions. There is rqtheida-[id number]-[id number] degene rative disc and facet disease in lumbar spine. Osteopenia Soft tissues: Overlying bowel gas pattern is normal. Vascular calcifications consistent with osteon ecrosis. IMPRESSION: 1. No fracture. 2. [id number]-[id number] degenerative disc and facet disease in lumbar spine. Reviewed by: Loretta Collado MD on 05/04/2021 7:00 PM PDT Approved by: Loretta Collado MD on 05/04/2021 7:00 PM PDT Station ID: [id number]
[2021-05-04 20:19] LABS: BASOPHILS % (AUTO) 0.3 %; EOSINOPHILS # (AUTO) 0.4 10^3/uL (0.0-0.7); EOSINOPHILS % (AUTO) 3.4 %; HCT - HEMATOCRIT 39.8 % (42.0-52.0); HGB - HEMOGLOBIN 12.5 g/dL (14.0-18.0); LYMPHOCYTES # (AUTO) 1.7 10^3/uL (1.5-3.5); LYMPHOCYTES % (AUTO) 16.5 %; MEAN CORPUSCULAR HEMOGLOBIN 26.3 pg (27.0-31.0); MEAN CORPUSCULAR HGB CONC 31.4 g/dL (32.0-36.0); MEAN CORPUSCULAR VOLUME 83.8 fL (80.0-94.0); MEAN PLATELET VOLUME 8.6 fL (7.4-11.4); MONOCYTES # (AUTO) 0.8 10^3/uL (0.0-1.0); MONOCYTES % (AUTO) 8.3 %; NEUTROPHILS # (AUTO) 7.3 10^3/uL (1.5-6.6); NEUTROPHILS % (AUTO) 71.2 %; PLT - PLATELET COUNT 232 10^3/uL (130-450); RED BLOOD COUNT 4.75 10^6/uL (4.70-6.10); RED CELL DISTRIBUTION WIDTH 14.7 % (12.0-15.0); WHITE BLOOD COUNT 10.2 x10^3/uL (4.8-10.8)
--- NOTE | 2021-05-04 20:25 | CT Report ---
PROCEDURE: HEAD WO INDICATIONS: altered mental status TECHNIQUE: Noncontrast 4.5 mm thick angled axial sections acquired from the foramen magnum to the vertex. For r adiation dose reduction, the following was used: automated exposure control, adjustment of mA and/or kV according to patient size. COMPARISON: CT without contrast, 07/24/2019. FINDINGS: Image quality: Mild motion artifacts. CSF spaces: Basal cisterns are patent. No extra-axial fluid collections. An arachnoid cyst is susp ected in the posterior fossa. Ventricles are normal in size and shape. Brain: There is encephalomalacia in the right frontal lobe is unchanged, consistent with old infarct. Stable small old right occipital infarct. No midline shift. No intracranial masses or hemorrhage. Severe cerebral volume loss. Periventricular matter small vessel ischemic changes are present. Skull and face: Calvarium and visualized facial bones are intact, without suspicious lesions. Sinuses: Visualized sinuses and mastoids are clear. IMPRESSION: 1. No acute intracranial abnormalities. 2. Old right frontal infarct. 3. Cerebral volume loss and periventricular white matter chronic small vessel treatment changes. Reviewed by: Loretta Collado MD on 05/04/2021 8:23 PM PDT Approved by: Loretta Collado MD on 05/04/2021 8:23 PM PDT Station ID: [id number]
[2021-05-04 20:38] LABS: ALBUMIN 4.2 g/dL (3.2-5.5); BILIRUBIN,TOTAL 0.7 mg/dL (0.2-1.0); CALCIUM 9.3 mg/dL (8.5-10.3); POTASSIUM 4.9 mmol/L (3.5-5.0); TOTAL PROTEIN 8.4 g/dL (6.7-8.2)
[2021-05-04 21:05] LABS: BILIRUBIN,URINE NEGATIVE (NEGATIVE); GLUCOSE, URINE (UA) NEGATIVE (NEGATIVE); KETONES,URINE (UA) NEGATIVE (NEGATIVE); LEUKOCYTE ESTERASE, URINE TRACE (NEGATIVE); NITRITE,URINE POSITIVE (NEGATIVE); OCCULT BLOOD,URINE MODERATE (NEGATIVE); PH,URINE 5.5 PH (5.0-7.5); PROTEIN,URINE TRACE mg/dL (NEGATIVE); UROBILINOGEN,URINE 0.2 (NORMAL) E.U./dL (NORMAL)
[2021-05-04 21:06] LABS: CLARITY,URINE HAZY (CLEAR)
[2021-05-04 21:15] LABS: BACTERIA,URINE Moderate /HPF (None Seen); SQUAMOUS EPITHELIAL CELL,UR RARE Squamous (<= Few)
[2021-05-04] MEDS ORDERED: cephALEXin 250 MG CAPSULE PO STA (21:22)
[2021-05-04 21:29] VITALS: BP 152/57
== END 2021-05-04 21:36 | disposition home or self-care (01) ==
LOC: ED 17:52
DX: M53.3 Sacrococcygeal disorders, not elsewhere classified (principal); M25.552 Pain in left hip; W19.XXXA Unspecified fall, initial encounter; M51.36 Other intervertebral disc degeneration, lumbar region; M16.0 Bilateral primary osteoarthritis of hip; N30.00 Acute cystitis without hematuria; F03.90 Unspecified dementia, unspecified severity, without behavioral disturbance, psychotic disturbance, mood disturbance, and anxiety; I45.10 Unspecified right bundle-branch block; I44.0 Atrioventricular block, first degree; I10 Essential (primary) hypertension; E11.9 Type 2 diabetes mellitus without complications; Z79.4 Long term (current) use of insulin; Z79.02 Long term (current) use of antithrombotics/antiplatelets; Z79.82 Long term (current) use of aspirin
CPT/HCPCS: 36415; 70450; 72100; 73502; 80053; 81001; 83690; 85025; 87086; 87181; 93005; 99284; A9270; 81003